=== PATIENT | female | born 1940 | race Native Hawaiian/Other Pacific Islander ===

== ENCOUNTER 2017-07-09 03:45 | Inpatient (IN) | payer MEDICARE ==
--- NOTE | 2017-07-09 04:08 | C.PDOC ---
History Of Present Illness pt presents with dizziness since yesterday at 3pm. difficulty ambulating. some nausea,no vomiting. No cp or palpitations. speaking in complete sentences Time Seen by Provider: 07/09/17 04:08 Chief Complaint (Nursing): Dizziness/Lightheaded History Per: Patient History/Exam Limitations: no limitations Onset/Duration Of Symptoms: Hrs (13) Current Symptoms Are (Timing): Still Present Activity At Onset Of Symptoms: Standing - Symptoms Of CVA Associated Symptoms: denies: Impaired Speech, Seizure Activity Recent Aspirin Use: No Current Coumadin Use?: No Recent Head Trauma: No Past Medical History Reviewed: Historical Data, Nursing Documentation, Vital Signs Vital Signs: Last Vital Signs Temp 98 F 07/09/17 06:25 Pulse 61 07/09/17 06:25 Resp 20 07/09/17 06:25 BP 152/83 H 07/09/17 06:25 Pulse Ox 97 07/09/17 06:25 - Medical History PMH: HTN, Hypercholesterolemia Family History: States: No Known Family Hx - Social History Hx Alcohol Use: No Hx Substance Use: No - Immunization History Hx Tetanus Toxoid Vaccination: No Hx Influenza Vaccination: No Hx Pneumococcal Vaccination: No Review Of Systems Constitutional: Negative for: Fever, Chills Eyes: Positive for: Other (blind left eye). Negative for: Redness Cardiovascular: Negative for: Chest Pain Respiratory: Negative for: Shortness of Breath Gastrointestinal: Positive for: Nausea. Negative for: Vomiting, Abdominal Pain Genitourinary: Negative for: Dysuria Musculoskeletal: Negative for: Back Pain Skin: Negative for: Rash Neurological: Positive for: Dizziness. Negative for: Weakness Psych: Negative for: Anxiety Physical Exam - Physical Exam Appears: Non-toxic, No Acute Distress Skin: Warm, Dry Head: Normacephalic Eye(s): left: Other (blind) Oral Mucosa: Moist Tongue: Normal Appearing Lips: Normal Appearing Neck: Supple Chest: Symmetrical Cardiovascular: Rhythm Regular Respiratory: No Rales, No Rhonchi, No Wheezing Gastrointestinal/Abdominal: Soft, No Tenderness, No Distention Back: No CVA Tenderness Extremity: Normal ROM, No Pedal Edema Extremity: Bilateral: Atraumatic Pulses: Left Dorsalis Pedis: Normal, Right Dorsalis Pedis: Normal Neurological/Psych: Oriented x3, Normal Speech, Normal Cognition, Other (no nystagmus) Gait: Unsteady ED Course And Treatment - Laboratory Results Result Diagrams: 07/09/17 04:45 07/09/17 04:45 ECG: Interpreted By Me, Viewed By Me O2 Sat by Pulse Oximetry: 96 Pulse Ox Interpretation: Normal - Radiology CXR: Interpreted by Me, Viewed By Me CXR Interpretation: No: Infiltrates, Fracture, Pnemothorax NIHSS Stroke Scale - Date/Time Evaluation Performed Date Performed: 07/09/17 When Was NIHSS Performed: Baseline - How Severe is the Stoke Level of Consciousness: 0=Alert LOC to Questions: 0=Both comments correct LOC to commands: 0=Obeys both correctly Best Gaze: 0=Normal Visual: 0=No visual loss Facial: 0=Normal Motor Arm - Left: 0=No drift Motor Arm - Right: 0=No drift Motor Leg - Left: 0=No drift Motor Leg - Right: 0=No drift Limb Ataxia: 0=Absent Sensory: 0=Normal Best Language: 0=No aphasia Dysarthia: 0=Normal articulation Extinction & Inattention (Neglect): 0=Normal, no object Score: 0 Severity Of Stroke: 0= No Stroke Disposition Discussed With DrFran: Dionicio Allison Jr. Comment: accepted the pt on his service and took over the care at 6:40 AM Doctor Will See Patient In The: ED Counseled Patient/Family Regarding: Studies Performed, Diagnosis - Disposition Disposition: HOSPITALIZED Disposition Time: 04:08 Condition: FAIR Forms: [facility] ([place]) - Clinical Impression Clinical Impression: Dizziness, Ambulatory dysfunction Decision To Admit - Pt Status Changed To: Hospital Disposition Of: Inpatient - Admit Certification Admit to Inpatient:: After my assessment, the patient will require hospitalization for at least two midnights. This is because of the severity of symptoms shown, intensity of services needed, and/or the medical risk in this patient being treated as an outpatient. - InPatient: Physician Admission Certification: I certify that this patient requires 2 or more midnights of care for the following reason:: After my assessment, the patient will require hospitalization for at least two midnights. This is because of the severity of symptoms shown, intensity of services needed, and/or the medical risk in this patient being treated as an outpatient. - . Bed Request Type: Telemetry Admitting Physician: Dionicio Allison Jr. Patient Diagnosis: Dizziness, Ambulatory dysfunction
[2017-07-09 04:49] LABS: BASO # 0.1 K/uL (0.0-0.2); BASO % 1.1 % (0.0-2.0); EOS # 0.1 K/uL (0.0-0.7); EOS % 0.9 % (0.0-4.0); HEMATOCRIT 42.3 % (34.0-47.0); LYMPH # 1.5 K/uL (1.0-4.3); LYMPH % 16.4 % (20.0-40.0); MEAN CELL VOLUME 92.2 fL (81.0-99.0); MEAN CORPUSCULAR HEMOGLOBIN 31.2 pg (27.0-31.0); MEAN CORPUSCULAR HGB CONC 33.8 g/dL (33.0-37.0); MEAN PLATELET VOLUME 7.3 fL (7.2-11.7); MONO # 0.7 K/uL (0.0-0.8); MONO % 7.5 % (0.0-10.0); RED CELL DISTRIBUTION WIDTH 14.7 % (11.5-14.5); WHITE BLOOD COUNT 9.2 K/uL (4.8-10.8)
[2017-07-09 05:02] LABS: ALB/GLOB RATIO 0.9 (1.0-2.1); ALKALINE PHOSPHATASE 100 U/L (38-126); ALT/SGPT 29 U/L (9-52); AST/SGOT 20 U/L (14-36); BILIRUBIN,TOTAL 0.9 mg/dL (0.2-1.3); BLOOD UREA NITROGEN 11 mg/dL (7-17); CARBON DIOXIDE 21 mmol/L (22-30); CHLORIDE 101 mmol/L (98-107); GFR AFRICAN-AMERICAN > 60; GLUCOSE,RANDOM 145 mg/dL (65-105); POTASSIUM 4.1 mmol/L (3.6-5.2); SODIUM 139 mmol/L (132-148)
[2017-07-09 06:22] LABS: RBC URINE 3 /hpf (0-3); URINE BILIRUBIN NEGATIVE (NEGATIVE); URINE BLOOD NEGATIVE (NEGATIVE); URINE COLOR Straw (YELLOW); URINE GLUCOSE (UA) 1+ mg/dL (Normal); URINE KETONE TRACE mg/dL (NEGATIVE); URINE LEUKOCYTE ESTERASE TRACE Leu/uL (Negative); URINE PROTEIN 1+ mg/dL (NEGATIVE); URINE UROBILINOGEN NORMAL mg/dL (0.2-1.0)
[2017-07-09 07:32] LABS: WBC URINE 3 /hpf (0-5)
--- NOTE | 2017-07-09 07:41 | CP.PCM.HP ---
History of Present Illness - History of Present Illness History of Present Illness: CC: "I feel dizzy" HPI: Patient is a 76 F reporting to the ED for weakness with at bedside. Patient stated that yesterday afternoon (07/08) she was watching TV and when she got up to go to the bathroom she felt dizzy and unsteady, like I couldnt walk straight. She reports still feeling dizzy and like she was going to lose her balance after using the restroom. Patient denies falling. 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 Pt denies using an assisted walking device but reports that she goes for walks with her every morning. Pt denies fevers, weakness, headache, changes in vision, chest pain, palpitations, SOB, V/D/C, changes in weight, vertigo. PMD: Dr. Cachorro Gaines #[phone] Allergies: none Meds: 10mg PO Simvastatin daily, 50mg PO Atenolol daily, Lotrel 10/20 mg once per day to each eye PMHx: HTN, HLD, Cataracts, Prediabetic, breast cancer PSHx: Cataract Left eye, Mastectomy left breast (1992), x2 FamHx: Father with HTN and Stroke ( at 65) Social: denies tobacco, alcohol, drug use. Patient lives with (Warner # [phone]) and has two adult children in [place] and [place]. Pt enjoys gardening and cooking. Patient does not drive. Vitals: BP flat: 151/65 BP Sittin/60 Present on Admission - Present on Admission Any Indicators Present on Admission: No Review of Systems - Constitutional Constitutional: absent: Chills, Fever, Headache, Increased Appetite, Night Sweats, Weight Gain, Weight Loss, Weakness - EENT Eyes: Other (blind in left eye). absent: Change in Vision, Pain, Loss of Vision Ears: Disequilibrium. absent: Dizziness Nose/Mouth/Throat: absent: Sore Throat - Cardiovascular Cardiovascular: Lightheadedness. absent: Chest Pain, Dyspnea, Leg Edema, Palpitations, Rapid Heart Rate, Syncope - Respiratory Respiratory: absent: Cough, Dyspnea, Dyspnea on Exertion, Wheezing - Gastrointestinal Gastrointestinal: Nausea. absent: Constipation, Diarrhea, Vomiting - Genitourinary Genitourinary: absent: Dysuria, Hematuria - Musculoskeletal Musculoskeletal: absent: Muscle Weakness, Numbness, Tingling - Neurological Neurological: Disequilibrium. absent: Numbness, Headaches Past Patient History - Infectious Disease Hx of Infectious Diseases: None - Past Social History Smoking Status: Never Smoked - CARDIAC Hx Hypercholesterolemia: Yes Hx Hypertension: Yes - PSYCHIATRIC Hx Substance Use: No - SURGICAL HISTORY Hx Mastectomy: Yes (left mastectomy) - ANESTHESIA Hx Anesthesia: No Meds Allergies/Adverse Reactions: Allergies Allergy/AdvReac Type Severity Reaction Status Date / Time No Known Allergies Allergy Verified 07/09/17 04:03 Physical Exam - Constitutional Appears: No Acute Distress - Head Exam Head Exam: ATRAUMATIC, NORMAL INSPECTION, NORMOCEPHALIC - Eye Exam Eye Exam: EOMI, Normal appearance, PERRL Pupil Exam: NORMAL ACCOMODATION, PERRL - ENT Exam ENT Exam: Mucous Membranes Moist - Respiratory Exam Respiratory Exam: Clear to Auscultation Bilateral, NORMAL BREATHING PATTERN. absent: Rales, Rhonchi, Wheezes, Stridor - Cardiovascular Exam Cardiovascular Exam: REGULAR RHYTHM, RRR, +S1, +S2 - GI/Abdominal Exam GI & Abdominal Exam: Normal Bowel Sounds, Soft. absent: Tenderness - Extremities Exam Extremities exam: Positive for: full ROM, normal inspection, pedal pulses present. Negative for: calf tenderness, joint swelling, pedal edema, tenderness - Neurological Exam Neurological exam: Alert, CN II-XII Intact, Oriented x3 - Expanded Neurological Exam Expanded Patient oriented to: person, place, time Cranial nerves: EOM's Intact: Normal, Facial Sensation: Normal Sensory exam: Lower Extremity Light Touch: Normal, Upper Extremity Light Touch: Normal Neuro motor strength exam: Left Upper Extremity: 5, Right Upper Extremity: 5, Left Lower Extremity: 5, Right Lower Extremity: 5 Coma Scale Eye Opening: SPONTANEOUS Coma Scale Motor Response: OBEYS COMMANDS Coma Scale Verbal: Oriented Coma Scale Total: 15 - Psychiatric Exam Psychiatric exam: Normal Affect - Skin Skin Exam: Normal Color, Warm Results - Vital Signs Recent Vital Signs: Last Vital Signs Temp 98 F 07/09/17 06:25 Pulse 61 07/09/17 06:25 Resp 20 07/09/17 06:25 BP 152/83 H 07/09/17 06:25 Pulse Ox 96 07/09/17 06:48 - Labs Result Diagrams: 07/09/17 04:45 07/09/17 04:45 Assessment & Plan (1) Dizziness Assessment and Plan: - Repeat EKG - AZUL x3 - Negative x2 - f/u Lipid Panel - f/u HA1C - Carotid doppler: Right and Left normal findings - f/u ECHO - Head CT: No intracranial mass, hemorrhage or evidence of acute infarct. Mild age appropriate involutional change. - Cardiology Consult: Dr. Guillen --> help appreciated Status: Acute (2) History of hypertension Assessment and Plan: Continue: Aspirin 81mg daily, Amlodipine 10mg daily, atenolol 50mg daily Status: Acute (3) History of hyperlipidemia Assessment and Plan: Continue: 2.5mg PO Rosuvastatin Status: Acute (4) DVT prophylaxis Assessment and Plan: heparin sc Status: Acute
--- NOTE | 2017-07-09 08:21 | CT ---
PROCEDURE: CT HEAD WITHOUT CONTRAST. HISTORY: Headache COMPARISON: None available. TECHNIQUE: Axial computed tomography images were obtained through the head/brain without intravenous contrast. Radiation dose: Total exam DLP = 872.10 mGy-cm. This CT exam was performed using one or more of the following dose reduction techniques: Automated exposure control, adjustment of the mA and/or kV according to patient size, and/or use of iterative reconstruction technique. FINDINGS: HEMORRHAGE: No intracranial hemorrhage. BRAIN: No mass effect or edema. No significant atrophy. Mild periventricular white matter lucency with patchy and confluent deep white matter lucency bilaterally, consistent with age-related microvascular ischemic change. No evidence of acute infarct. VENTRICLES: Unremarkable. No hydrocephalus. CALVARIUM: Unremarkable. PARANASAL SINUSES: Unremarkable as visualized. No significant inflammatory changes. MASTOID AIR CELLS: Unremarkable as visualized. No inflammatory changes. OTHER FINDINGS: None. IMPRESSION: No intracranial mass, hemorrhage or evidence of acute infarct. Mild age appropriate involutional change. Preliminary interpretation of this examination was reported by [facility] at 5:53 a.m. on 07/09/2017. There is concurrence of this report with the preliminary interpretation.
[2017-07-09 10:11] LABS: INR 1.1
[2017-07-09] MEDS: Rosuvastatin Calcium 2.5 mg Tab PO SCH (21:47)
[2017-07-10 07:47] LABS: BASO # 0.1 K/uL (0.0-0.2); BASO % 0.8 % (0.0-2.0); EOS # 0.1 K/uL (0.0-0.7); HEMATOCRIT 41.3 % (34.0-47.0); LYMPH % 30.7 % (20.0-40.0); MEAN CELL VOLUME 92.1 fL (81.0-99.0); MEAN CORPUSCULAR HEMOGLOBIN 30.8 pg (27.0-31.0); MEAN CORPUSCULAR HGB CONC 33.5 g/dL (33.0-37.0); MEAN PLATELET VOLUME 7.6 fL (7.2-11.7); MONO # 0.7 K/uL (0.0-0.8); MONO % 10.3 % (0.0-10.0); RED CELL DISTRIBUTION WIDTH 14.6 % (11.5-14.5); WHITE BLOOD COUNT 6.4 K/uL (4.8-10.8)
[2017-07-10 08:23] LABS: CHLORIDE 105 mmol/L (98-107); SODIUM 140 mmol/L (132-148)
[2017-07-10 08:24] LABS: POTASSIUM 3.7 mmol/L (3.6-5.2)
[2017-07-10 08:25] LABS: CHOLESTEROL 197 mg/dL (0-199)
[2017-07-10 08:26] LABS: ALKALINE PHOSPHATASE 82 U/L (38-126); ALT/SGPT 27 U/L (9-52); AST/SGOT 24 U/L (14-36); BLOOD UREA NITROGEN 17 mg/dL (7-17); CALCIUM 8.6 mg/dl (8.6-10.4); CARBON DIOXIDE 26 mmol/L (22-30); GFR AFRICAN-AMERICAN > 60; GLUCOSE,RANDOM 113 mg/dL (65-105); TOTAL PROTEIN 7.3 g/dL (6.3-8.3)
[2017-07-10 08:45] LABS: T4 9.56 ug/dL (5.5-11.0)
[2017-07-10 09:00] LABS: THYROID STIMULATING HORMONE 1.37 mIU/L (0.46-4.68)
--- NOTE | 2017-07-10 10:19 | CP.PCM.CON ---
<Ananya Lancaster - Last Filed: 07/11/17 08:55> History of Present Illness - History of Present Illness History of Present Illness: 76 year old female with past medical history hypertension, hyperlipidemia, prediabetes, and breast cancer s/p left breast mastectomy presents with dizziness at home after using the restroom. Patient describes her dizziness as if she is losing her balance and she could not walk straight. No prior history of the same. Patient exercises daily by walking with her every morning. Patient denies loss of consciousness or falling after experiencing the dizziness. She is compliant with her medications at home. Patient denies headache, fever, shortness of breath, chest pain, abdominal pain, nausea, vomiting, or diarrhea. PMD: Dr. Gaines PMHx: hypertension, hyperlipidemia, prediabetes, and breast cancer PSHx: Cataract Left eye, Mastectomy left breast (1992), x2 Allergies: none Family Hx: Father with HTN and Stroke ( at 65) Social: denies past tobacco, alcohol, and other drug use Home Meds: Simvastatin, Atenolol, Lotrel eye drop Review of Systems - Constitutional Constitutional: As Per HPI. absent: Excessive Sweating, Fever, Weight Loss - EENT Eyes: As Per HPI. absent: Blurred Vision, Change in Vision Ears: As Per HPI, Disequilibrium, Dizziness Nose/Mouth/Throat: As Per HPI - Cardiovascular Cardiovascular: As Per HPI, Lightheadedness. absent: Chest Pain, Edema, Irregular Heart Rhythm, Syncope - Respiratory Respiratory: As Per HPI. absent: Cough, Dyspnea, Dyspnea on Exertion, Wheezing - Gastrointestinal Gastrointestinal: As Per HPI. absent: Heartburn, Nausea, Vomiting - Musculoskeletal Musculoskeletal: As Per HPI. absent: Deformity, Muscle Weakness - Integumentary Integumentary: As Per HPI - Neurological Neurological: As Per HPI, Disequilibrium, Dizziness - Psychiatric Psychiatric: As Per HPI. absent: Anxiety, Confusion, Depression - Endocrine Endocrine: As Per HPI - Hematologic/Lymphatic Hematologic: As Per HPI Past Patient History - Infectious Disease Hx of Infectious Diseases: None - Past Medical History & Family History Past Medical History?: Yes - Past Social History Smoking Status: Never Smoked - CARDIAC Hx Hypercholesterolemia: Yes Hx Hypertension: Yes - PULMONARY Hx Respiratory Disorders: No - NEUROLOGICAL Hx Neurological Disorder: No - HEENT Hx Cataracts: Yes - RENAL Hx Chronic Kidney Disease: No - ENDOCRINE/METABOLIC Other/Comment: patient states she is borderline diabetic. - HEMATOLOGICAL/ONCOLOGICAL Hx Blood Disorders: Yes Hx Cancer: Yes (breast CA) - INTEGUMENTARY Hx Dermatological Problems: No - MUSCULOSKELETAL/RHEUMATOLOGICAL Hx Falls: No - GASTROINTESTINAL Hx Gastrointestinal Disorders: No - GENITOURINARY/GYNECOLOGICAL Hx Genitourinary Disorders: No - PSYCHIATRIC Hx Substance Use: No - SURGICAL HISTORY Hx Mastectomy: Yes (left mastectomy) - ANESTHESIA Hx Anesthesia: No Meds Allergies/Adverse Reactions: Allergies Allergy/AdvReac Type Severity Reaction Status Date / Time No Known Allergies Allergy Verified 07/09/17 04:03 - Medications Medications: Current Medications Amlodipine Besylate (Norvasc) 10 mg PO DAILY [facility] Last Admin: 07/10/17 09:15 Dose: 10 mg Aspirin (Ecotrin) 81 mg PO DAILY [facility] Last Admin: 07/10/17 09:15 Dose: 81 mg Atenolol (Tenormin) 25 mg PO DAILY [facility] Famotidine (Pepcid) 20 mg PO DAILY [facility] Last Admin: 07/10/17 09:15 Dose: 20 mg Heparin Sodium (Porcine) (Heparin) 5,000 units SC Q8H [facility] Last Admin: 07/10/17 09:15 Dose: 5,000 units Rosuvastatin Calcium (Crestor) 2.5 mg PO HS [facility] Last Admin: 07/09/17 21:47 Dose: 2.5 mg Physical Exam - Constitutional Appears: Well, No Acute Distress - Head Exam Head Exam: ATRAUMATIC, NORMAL INSPECTION - Eye Exam Eye Exam: Normal appearance - ENT Exam ENT Exam: Mucous Membranes Moist - Neck Exam Neck exam: Positive for: Normal Inspection - Respiratory Exam Respiratory Exam: Clear to Auscultation Bilateral, NORMAL BREATHING PATTERN. absent: Respiratory Distress - Cardiovascular Exam Cardiovascular Exam: REGULAR RHYTHM - GI/Abdominal Exam GI & Abdominal Exam: Normal Bowel Sounds, Soft. absent: Tenderness - Extremities Exam Extremities exam: Positive for: normal inspection - Neurological Exam Neurological exam: Alert, Oriented x3 - Psychiatric Exam Psychiatric exam: Normal Affect, Normal Mood - Skin Skin Exam: Normal Color, Warm Results - Vital Signs Recent Vital Signs: Last Vital Signs Temp 98.1 F 07/10/17 08:43 Pulse 58 L 07/10/17 08:43 Resp 18 07/10/17 08:43 BP 126/69 07/10/17 08:43 Pulse Ox 95 07/10/17 08:43 - Labs Result Diagrams: 07/10/17 07:36 07/10/17 07:36 Labs: Laboratory Results - last 24 hr 07/09/17 07/09/17 07/09/17 09:58 14:24 19:51 WBC RBC Hgb Hct MCV MCH MCHC RDW Plt Count MPV Neut % (Auto) Lymph % (Auto) Hand % (Auto) Eos % (Auto) Baso % (Auto) Neut # Lymph # Hand # Eos # Baso # PT 12.0 INR 1.1 APTT Sodium Potassium Chloride Carbon Dioxide Anion Gap BUN Creatinine Est GFR ( Amer) Est GFR (Non-Af Amer) Random Glucose Hemoglobin A1c Calcium Total Bilirubin AST ALT Alkaline Phosphatase Total Creatine Kinase 31 26 L CK-MB (Mass) 0.27 0.31 Troponin I, Quant < 0.0120 < 0.0120 Total Protein Albumin Globulin Albumin/Globulin Ratio Triglycerides Cholesterol LDL Cholesterol Direct HDL Cholesterol Thyroxine (T4) TSH 3rd Generation 07/10/17 07/10/17 07/10/17 07:36 07:36 07:36 WBC 6.4 RBC 4.48 Hgb 13.8 Hct 41.3 MCV 92.1 MCH 30.8 MCHC 33.5 RDW 14.6 H Plt Count 349 MPV 7.6 Neut % (Auto) 56.2 Lymph % (Auto) 30.7 Hand % (Auto) 10.3 H Eos % (Auto) 2.0 Baso % (Auto) 0.8 Neut # 3.6 Lymph # 2.0 Hand # 0.7 Eos # 0.1 Baso # 0.1 PT INR APTT Sodium 140 Potassium 3.7 Chloride 105 Carbon Dioxide 26 Anion Gap 13 BUN 17 Creatinine 0.7 Est GFR ( Amer) > 60 Est GFR (Non-Af Amer) > 60 Random Glucose 113 H Hemoglobin A1c 6.5 Calcium 8.6 Total Bilirubin 1.0 AST 24 ALT 27 Alkaline Phosphatase 82 Total Creatine Kinase CK-MB (Mass) Troponin I, Quant Total Protein 7.3 Albumin 3.7 Globulin 3.6 Albumin/Globulin Ratio 1.0 Triglycerides 186 H Cholesterol 197 LDL Cholesterol Direct 113 HDL Cholesterol 54 Thyroxine (T4) 9.56 TSH 3rd Generation 1.37 07/10/17 07:36 WBC RBC Hgb Hct MCV MCH MCHC RDW Plt Count MPV Neut % (Auto) Lymph % (Auto) Hand % (Auto) Eos % (Auto) Baso % (Auto) Neut # Lymph # Hand # Eos # Baso # PT INR APTT 53 H Sodium Potassium Chloride Carbon Dioxide Anion Gap BUN Creatinine Est GFR ( Amer) Est GFR (Non-Af Amer) Random Glucose Hemoglobin A1c Calcium Total Bilirubin AST ALT Alkaline Phosphatase Total Creatine Kinase CK-MB (Mass) Troponin I, Quant Total Protein Albumin Globulin Albumin/Globulin Ratio Triglycerides Cholesterol LDL Cholesterol Direct HDL Cholesterol Thyroxine (T4) TSH 3rd Generation Assessment & Plan - Assessment and Plan (Free Text) Assessment: Dizziness -Likely vasovagal -No acute ST changes in EKG -Trop negative x3 -Pending results Carotid dopple, Echo -Unremarkable Head CT and TSH -Normal orthostatic- supine: 151/65, Sittin/60 Hypertension, controlled -Continue with Aspirin, Amlodipine, and Atenolol Hyperlipidemia -TG 186 -Continue crestor <Marco Antonio Guillen - Last Filed: 07/13/17 06:54> Results - Vital Signs Recent Vital Signs: Last Vital Signs Temp 98.7 F 07/12/17 08:46 Pulse 58 L 07/12/17 08:46 Resp 20 07/12/17 08:46 BP 130/76 07/12/17 08:46 Pulse Ox 96 07/12/17 08:46 - Labs Result Diagrams: 07/11/17 07:09 07/10/17 07:36 Assessment & Plan - Assessment and Plan (Free Text) Plan: Patient seen and evaluated with the medical record coder. Symptoms likely secondary to Atenolol Will decrease Atenolol dosage and observe
--- NOTE | 2017-07-10 10:49 | VASCLAB ---
PROCEDURE: HISTORY: Syncope COMPARISON: None available. TECHNIQUE: Grayscale and duplex Doppler evaluation of the cervical carotid and vertebral arteries were performed. The common carotid, carotid bifurcations and cervical Internal Carotid Artery (ICA) and proximal External Carotid Artery (ECA) were evaluated. The vertebral arteries were evaluated for gross patency and flow direction. Report prepared by IDA Zelaya FINDINGS: RIGHT CAROTID ARTERIES: 1. Common Carotid Artery: No significant focal plaque formation of the right common carotid artery. Maximum Peak Systolic velocity: 77 cm/sec: End-diastolic velocity 12 cm/sec. 2. Carotid Bifurcation: plaque formation. Maximum Peak Systolic velocity: 75 cm/sec: End-diastolic velocity 12 cm/sec. 3. Internal Carotid Artery: Plaque description: 3.1. Proximal Segment: Peak systolic velocity 66 cm/sec: End-diastolic velocity 14 cm/sec - % stenosis 0-15% 3.2. Middle Segment: Peak systolic velocity 71 cm/sec: End-diastolic velocity 18 cm/sec - % stenosis 0-15% 3.3. Distal Segment: Peak systolic velocity 107 cm/sec: End-diastolic velocity 24 cm/sec - % stenosis 0-15% 4. External Carotid Artery: No significant focal plaque formation. Peak systolic velocity 95 cm/sec 5. ICA/CCA Ratio: 1.4 LEFT CAROTID ARTERIES: 1. Common Carotid Artery: No significant focal plaque formation of the left common carotid artery. Maximum Peak Systolic velocity: 88 cm/sec: End-diastolic velocity 19 cm/sec. 2. Carotid Bifurcation: plaque formation. Maximum Peak Systolic velocity: 75 cm/sec: End-diastolic velocity 12 cm/sec. 3. Internal Carotid Artery: Plaque description: 3.1. Proximal Segment: Peak systolic velocity 62 cm/sec: End-diastolic velocity 14 cm/sec - % stenosis 0-15% 3.2. Middle Segment: Peak systolic velocity 87 cm/sec: End-diastolic velocity 22 cm/sec - % stenosis 0-15% 3.3. Distal Segment: Peak systolic velocity 105 cm/sec: End-diastolic velocity 34 cm/sec - % stenosis 0-15% 4. External Carotid Artery: No significant focal plaque formation. Peak systolic velocity 75 cm/sec 5. ICA/CCA Ratio: 1.2 VERTEBRAL ARTERIES: 1. Right Vertebral Artery: The right vertebral artery flow direction is antegrade. 2. Left Vertebral Artery: The left vertebral artery flow direction is antegrade. OTHER FINDINGS: 1. Right Brachial Blood pressure: 130 mmHg. 2. Left Brachial Blood pressure: 120 mmHg. IMPRESSION: RIGHT: Duplex scan does not suggest hemodynamically significant stenosis of the right extracranial carotid arteries. LEFT: Duplex scan does not suggest hemodynamically significant stenosis of the left extracranial carotid arteries.
--- NOTE | 2017-07-10 15:57 | CP.PCM.PN ---
<SarmadPark SFran - Last Filed: 07/10/17 18:01> Subjective - Date & Time of Evaluation Date of Evaluation: 07/10/17 Time of Evaluation: 07:30 - Subjective Subjective: Medicine Progress Note: Patient was seen and examined at bedside in the AM. Patient reports no complaints over night. Per nurse patient needed assistance getting up to use the restroom because she began to feel dizzy. Patient denies shortness of breath , difficulty breathing, chest pain or palpitations. Objective - Vital Signs/Intake and Output Vital Signs (last 24 hours): Temp Pulse Resp BP Pulse Ox 98.1 F 71 18 126/69 95 07/10/17 08:43 07/10/17 12:00 07/10/17 08:43 07/10/17 08:43 07/10/17 08:43 Intake and Output: 07/10/17 07/10/17 06:59 18:59 Intake Total 400 Balance 400 - Medications Medications: Current Medications Amlodipine Besylate (Norvasc) 10 mg PO DAILY [facility] Last Admin: 07/10/17 09:15 Dose: 10 mg Aspirin (Ecotrin) 81 mg PO DAILY [facility] Last Admin: 07/10/17 09:15 Dose: 81 mg Atenolol (Tenormin) 25 mg PO DAILY [facility] Famotidine (Pepcid) 20 mg PO DAILY [facility] Last Admin: 07/10/17 09:15 Dose: 20 mg Heparin Sodium (Porcine) (Heparin) 5,000 units SC Q8H [facility] Last Admin: 07/10/17 09:15 Dose: 5,000 units Rosuvastatin Calcium (Crestor) 2.5 mg PO HS [facility] Last Admin: 07/09/17 21:47 Dose: 2.5 mg - Labs Labs: 07/10/17 07:36 07/10/17 07:36 PT 12.0 SECONDS (9.7-12.2) 07/09/17 09:58 INR 1.1 07/09/17 09:58 APTT 53 SECONDS (21-34) H 07/10/17 07:36 - Constitutional Appears: No Acute Distress - Head Exam Head Exam: ATRAUMATIC, NORMAL INSPECTION, NORMOCEPHALIC - Eye Exam Eye Exam: EOMI, Normal appearance, PERRL Pupil Exam: NORMAL ACCOMODATION, PERRL - ENT Exam ENT Exam: Mucous Membranes Moist - Respiratory Exam Respiratory Exam: Clear to Ausculation Bilateral, NORMAL BREATHING PATTERN - Cardiovascular Exam Cardiovascular Exam: REGULAR RHYTHM, RRR, +S1, +S2 - GI/Abdominal Exam GI & Abdominal Exam: Soft, Normal Bowel Sounds. absent: Tenderness - Extremities Exam Extremities Exam: Normal Inspection - Neurological Exam Neurological Exam: Alert, Awake, Oriented x3 - Psychiatric Exam Psychiatric exam: Normal Affect, Normal Mood - Skin Skin Exam: Normal Color, Warm Assessment and Plan (1) Dizziness Assessment & Plan: - Repeat EKG - within normal limits - AZUL x3 -Negative x3 - Lipid Panel: Cholesterol 197; LDL 113; HDL 54; Triglycerides 186 - HA1C 6.5 - Carotid doppler: Right and Left normal findings - f/u ECHO - Head CT: No intracranial mass, hemorrhage or evidence of acute infarct. Mild age appropriate involutional change. - Cardiology Consult: Dr. Guillen --> help appreciated Status: Acute (2) History of hypertension Assessment & Plan: - Cardiology Consult: Dr. Guillen --> help appreciated - Continue: Aspirin 81mg daily, Amlodipine 10mg daily - Atenolol was held 07/10 - Start Atenolol 25mg 07/10 PO daily Status: Acute (3) History of hyperlipidemia Assessment & Plan: Continue: 2.5mg PO Rosuvastatin Status: Acute (4) DVT prophylaxis Assessment & Plan: heparin sc Status: Acute <Dionicio Allison Jr. - Last Filed: 07/12/17 10:46> Objective - Vital Signs/Intake and Output Vital Signs (last 24 hours): Temp Pulse Resp BP Pulse Ox 98.7 F 58 L 20 130/76 96 07/12/17 08:46 07/12/17 08:46 07/12/17 08:46 07/12/17 08:46 07/12/17 08:46 - Labs Labs: 07/11/17 07:09 07/10/17 07:36 PT 12.0 SECONDS (9.7-12.2) 07/09/17 09:58 INR 1.1 07/09/17 09:58 APTT 53 SECONDS (21-34) H 07/10/17 07:36 Attending/Attestation - Attestation I have personally seen and examined this patient.: Yes I have fully participated in the care of the patient.: Yes I have reviewed all pertinent clinical information, including history, physical exam and plan: Yes Notes (Text): 07/12/17 10:46 Agree with resident note and plan of care
--- NOTE | 2017-07-10 17:37 | CARD ---
APPROVED REPORT EKG Measurement Heart [id number] CT 188P-23 [id number] [id number]-4 [id number] <Conclusion> Normal sinus rhythm Normal ECG
--- NOTE | 2017-07-10 17:52 | CARD ---
APPROVED REPORT EKG Measurement Heart [id number] W[place] 202P-24 [id number] <Conclusion> Normal sinus rhythm Cannot rule out Anterior infarct, age undetermined Abnormal ECG
[2017-07-10] MEDS: Rosuvastatin Calcium 2.5 mg Tab PO SCH (21:30)
[2017-07-11 07:26] LABS: BASO # 0.1 K/uL (0.0-0.2); BASO % 0.9 % (0.0-2.0); EOS # 0.2 K/uL (0.0-0.7); EOS % 2.3 % (0.0-4.0); HEMATOCRIT 40.6 % (34.0-47.0); LYMPH % 28.5 % (20.0-40.0); MEAN CELL VOLUME 92.5 fL (81.0-99.0); MEAN CORPUSCULAR HEMOGLOBIN 30.8 pg (27.0-31.0); MEAN CORPUSCULAR HGB CONC 33.3 g/dL (33.0-37.0); MEAN PLATELET VOLUME 7.5 fL (7.2-11.7); MONO # 0.8 K/uL (0.0-0.8); MONO % 10.5 % (0.0-10.0); RED CELL DISTRIBUTION WIDTH 14.5 % (11.5-14.5); WHITE BLOOD COUNT 7.1 K/uL (4.8-10.8)
[2017-07-11] MEDS ORDERED: Bisacodyl 5mg EC Tab PO ONE (13:20)
--- NOTE | 2017-07-11 16:23 | CP.PCM.DIS ---
Provider - Provider Date of Admission: 07/09/17 06:38 Attending physician: Dionicio Allison Jr, MD Time Spent in preparation of Discharge (in minutes): 40 Diagnosis - Discharge Diagnosis (1) Dizziness Status: Acute (2) History of hypertension Status: Acute (3) History of hyperlipidemia Status: Acute (4) DVT prophylaxis Status: Acute Hospital Course - Lab Results Lab Results: Most Recent Lab Values WBC 7.1 K/uL (4.8-10.8) 07/11/17 07:09 RBC 4.39 Mil/uL (3.80-5.20) 07/11/17 07:09 Hgb 13.5 g/dL (11.0-16.0) 07/11/17 07:09 Hct 40.6 % (34.0-47.0) 07/11/17 07:09 MCV 92.5 fL (81.0-99.0) 07/11/17 07:09 MCH 30.8 pg (27.0-31.0) 07/11/17 07:09 MCHC 33.3 g/dL (33.0-37.0) 07/11/17 07:09 RDW 14.5 % (11.5-14.5) 07/11/17 07:09 Plt Count 323 K/uL (130-400) 07/11/17 07:09 MPV 7.5 fL (7.2-11.7) 07/11/17 07:09 Neut % (Auto) 57.8 % (50.0-75.0) 07/11/17 07:09 Lymph % (Auto) 28.5 % (20.0-40.0) 07/11/17 07:09 [place] % (Auto) 10.5 % (0.0-10.0) H 07/11/17 07:09 Eos % (Auto) 2.3 % (0.0-4.0) 07/11/17 07:09 Baso % (Auto) 0.9 % (0.0-2.0) 07/11/17 07:09 Neut # 4.1 K/uL (1.8-7.0) 07/11/17 07:09 Lymph # 2.0 K/uL (1.0-4.3) 07/11/17 07:09 [place] # 0.8 K/uL (0.0-0.8) 07/11/17 07:09 Eos # 0.2 K/uL (0.0-0.7) 07/11/17 07:09 Baso # 0.1 K/uL (0.0-0.2) 07/11/17 07:09 PT 12.0 SECONDS (9.7-12.2) 07/09/17 09:58 INR 1.1 07/09/17 09:58 APTT 53 SECONDS (21-34) H 07/10/17 07:36 Sodium 140 mmol/L (132-148) 07/10/17 07:36 Potassium 3.7 mmol/L (3.6-5.2) 07/10/17 07:36 Chloride 105 mmol/L (98-107) 07/10/17 07:36 Carbon Dioxide 26 mmol/L (22-30) 07/10/17 07:36 Anion Gap 13 (10-20) 07/10/17 07:36 BUN 17 mg/dL (7-17) 07/10/17 07:36 Creatinine 0.7 MG/DL (0.7-1.2) 07/10/17 07:36 Est GFR ( Amer) > 60 07/10/17 07:36 Est GFR (Non-Af Amer) > 60 07/10/17 07:36 Random Glucose 113 mg/dL (65-105) H 07/10/17 07:36 Hemoglobin A1c 6.5 % (4.2-6.5) 07/10/17 07:36 Calcium 8.6 mg/dl (8.6-10.4) 07/10/17 07:36 Total Bilirubin 1.0 mg/dL (0.2-1.3) 07/10/17 07:36 AST 24 U/L (14-36) 07/10/17 07:36 ALT 27 U/L (9-52) 07/10/17 07:36 Alkaline Phosphatase 82 U/L (38-126) 07/10/17 07:36 Total Creatine Kinase 26 U/L (30-135) L 07/09/17 19:51 CK-MB (Mass) 0.31 ng/mL (0.0-3.38) 07/09/17 19:51 Troponin I, Quant < 0.0120 ng/mL (0.00-0.120) 07/09/17 19:51 Total Protein 7.3 g/dL (6.3-8.3) 07/10/17 07:36 Albumin 3.7 g/dL (3.5-5.0) 07/10/17 07:36 Globulin 3.6 gm/dL (2.2-3.9) 07/10/17 07:36 Albumin/Globulin Ratio 1.0 (1.0-2.1) 07/10/17 07:36 Triglycerides 186 mg/dL (0-149) H 07/10/17 07:36 Cholesterol 197 mg/dL (0-199) 07/10/17 07:36 LDL Cholesterol Direct 113 mg/dL (0-129) 07/10/17 07:36 HDL Cholesterol 54 mg/dL (30-70) 07/10/17 07:36 Thyroxine (T4) 9.56 ug/dL (5.5-11.0) 07/10/17 07:36 TSH 3rd Generation 1.37 mIU/L (0.46-4.68) 07/10/17 07:36 Urine Color Straw (YELLOW) 07/09/17 04:25 Urine Clarity Clear (Clear) 07/09/17 04:25 Urine pH 7.0 (5.0-8.0) 07/09/17 04:25 Ur Specific [place] 1.012 (1.003-1.030) 07/09/17 04:25 Urine Protein 1+ mg/dL (NEGATIVE) H 07/09/17 04:25 Urine Glucose (UA) 1+ mg/dL (Normal) 07/09/17 04:25 Urine Ketones Trace mg/dL (NEGATIVE) 07/09/17 04:25 Urine Blood Negative (NEGATIVE) 07/09/17 04:25 Urine Nitrate Negative (NEGATIVE) 07/09/17 04:25 Urine Bilirubin Negative (NEGATIVE) 07/09/17 04:25 Urine Urobilinogen Normal mg/dL (0.2-1.0) 07/09/17 04:25 Ur Leukocyte Esterase Trace Dodie/uL (Negative) 07/09/17 04:25 Urine WBC (Auto) 3 /hpf (0-5) 07/09/17 04:25 Urine RBC (Auto) 3 /hpf (0-3) 07/09/17 04:25 Ur Squamous Epith Cells 1 /hpf (0-5) 07/09/17 04:25 - Hospital Course Hospital Course: CC: "I feel dizzy" HPI: Patient is a 76 F reporting to the ED for weakness with at bedside. Patient stated that yesterday afternoon (07/08) she was watching TV and when she got up to go to the bathroom she felt dizzy and unsteady, like I couldnt walk straight. She reports still feeling dizzy and like she was going to lose her balance after using the restroom. Patient denies falling. 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 Pt denies using an assisted walking device but reports that she goes for walks with her every morning. Pt denies fevers, weakness, headache, changes in vision, chest pain, palpitations, SOB, V/D/C, changes in weight, vertigo. PMD: Dr. Cachorro Gaines #[phone] Allergies: none Meds: 10mg PO Simvastatin daily, 50mg PO Atenolol daily, Lotrel 10/20 mg once per day to each eye PMHx: HTN, HLD, Cataracts, Prediabetic, breast cancer PSHx: Cataract Left eye, Mastectomy left breast (1992), x2 FamHx: Father with HTN and Stroke ( at 65) Social: denies tobacco, alcohol, drug use. Patient lives with (Warner # [phone]) and has two adult children in [place] and [place]. Pt enjoys gardening and cooking. Patient does not drive. Vitals: BP flat: 151/65 BP Sittin/60 Hospital Course: Patient was admitted on 07/09/17 for dizziness and feeling unsteady on her feet like she was going to pass out. EKG x2 was within normal limits. Troponin levels x3 were negative. Lipid Panel: Cholesterol 197; LDL 113; HDL 54; Triglycerides 186; HA1C 6.5. Field Administrative Assistant Dr. Guillen was consulted. Head CT on admission showed no intracranial mass, hemorrhage or evidence of acute infarct. Mild age appropriate involutional change. Carotid doppler: Right and Left normal findings. Patient's home medication of Atenolol was discontinued due to decreased heart rate in the 50s. ECHO was done and showed left ventricular hypertrophy. Patient stable for discharge home per Dr. Allison. Patient to resume some home medications. Patient to stop: Atenolol PO daily Patient to follow up with cardiology Dr. Guillen within one week. Patient to follow up with primary care physician within one week. If symptoms return or worsen patient to return to Emergency Room. Discharge Exam - Head Exam Head Exam: ATRAUMATIC, NORMAL INSPECTION, NORMOCEPHALIC - Eye Exam Eye Exam: EOMI, Normal appearance, PERRL Pupil Exam: NORMAL ACCOMODATION, PERRL - ENT Exam ENT Exam: Mucous Membranes Moist - Respiratory Exam Respiratory Exam: Clear to PA & Lateral, NORMAL BREATHING PATTERN - Cardiovascular Exam Cardiovascular Exam: REGULAR RHYTHM, RRR, +S1, +S2. absent: JVD - GI/Abdominal Exam GI & Abdominal Exam: Normal Bowel Sounds, Soft. absent: Tenderness - Extremities Exam Extremities exam: normal inspection - Neurological Exam Neurological exam: Alert, Oriented x3 - Psychiatric Exam Psychiatric exam: Normal Affect, Normal Mood - Skin Skin Exam: Normal Color, Warm Discharge Plan - Follow Up Plan Condition: FAIR Disposition: HOME/ ROUTINE
[2017-07-11] MEDS: Rosuvastatin Calcium 2.5 mg Tab PO SCH (21:36)
[2017-07-12 02:45] VITALS: RESP 20
[2017-07-12 08:48] VITALS: BP 130/76; PULSE 58; TEMP 98.7; O2SAT 96
--- NOTE | 2017-07-12 10:41 | CP.PCM.PN ---
<Ludivina Doss - Last Filed: 07/12/17 10:41> Subjective - Date & Time of Evaluation Date of Evaluation: 07/12/17 Time of Evaluation: 10:15 - Subjective Subjective: PGY 2 Progress Note (update) Patient was seen at bedside. Patient was to go home last night but was not aware of being discharged until late in the day. At that time, she was not able to obtain a ride and thus stayed overnight. Patient was discharged home this morning. Dr. Allison saw patient and was made aware. Patient is medically stable for discharge at this time. PGY 2 - [place] Objective - Vital Signs/Intake and Output Vital Signs (last 24 hours): Temp Pulse Resp BP Pulse Ox 98.7 F 58 L 20 130/76 96 07/12/17 08:46 07/12/17 08:46 07/12/17 08:46 07/12/17 08:46 07/12/17 08:46 - Labs Labs: 07/11/17 07:09 07/10/17 07:36 PT 12.0 SECONDS (9.7-12.2) 07/09/17 09:58 INR 1.1 07/09/17 09:58 APTT 53 SECONDS (21-34) H 07/10/17 07:36 <Dionicio Allison Jr. - Last Filed: 07/15/17 10:53> Objective - Vital Signs/Intake and Output Vital Signs (last 24 hours): Temp Pulse Resp BP Pulse Ox 98.7 F 58 L 20 130/76 96 07/12/17 08:46 07/12/17 08:46 07/12/17 08:46 07/12/17 08:46 07/12/17 08:46 - Labs Labs: 07/11/17 07:09 07/10/17 07:36 PT 12.0 SECONDS (9.7-12.2) 07/09/17 09:58 INR 1.1 07/09/17 09:58 APTT 53 SECONDS (21-34) H 07/10/17 07:36 Attending/Attestation - Attestation I have personally seen and examined this patient.: Yes I have fully participated in the care of the patient.: Yes I have reviewed all pertinent clinical information, including history, physical exam and plan: Yes Notes (Text): 07/15/17 10:53 Agree with resident note and plan of care
--- NOTE | 2017-07-13 10:55 | CARD ---
APPROVED REPORT EXAM: Two-dimensional and M-mode echocardiogram with Doppler and color Doppler. Other Information Quality : GoodRhythm : NSR INDICATION Dizziness and Vertigo Syncope 2D DIMENSIONS IVSd1.1 (0.7-1.1cm)LVDd4.0 (3.9-5.9cm) PWd1.2 (0.7-1.1cm)LVDs3.1 (2.5-4.0cm) FS (%) 21.6 %LVEF (%)60.0 (>50%) M-Mode DIMENSIONS RVDd1.95 (2.1-3.2cm)Left Atrium (MM)4.07 (2.5-4.0cm) IVSd1.30 (0.7-1.1cm)Aortic Root2.67 (2.2-3.7cm) LVDd3.87 (4.0-5.6cm)Aortic Cusp Exc.1.89 (1.5-2.0cm) PWd0.94 (0.7-1.1cm)FS (%) 45 % LVDs2.15 (2.0-3.8cm)LVEF (%)76 (>50%) Mitral Valve MV E Zmvtjkmi80.3cm/sMV A Makkvyku271.7cm/sE/A ratio0.7 TDI E/Lateral E'0.0E/Medial E'0.0 Tricuspid Valve TR Peak [id number]/sTR Peak Gr.[id number] <Conclusion> Left ventricle: thickness: normal; size: normal; overall ejection fraction:55%: diastolic filling pressures: elevated Mitral valve: annulus: normal: leaflets: normal: excursion: normal; no significant trans-mitral gradient: no significant incompetence: left atrium: upper limit of normal Aortic valve: leaflets:mild calcific thickening: excursion: normal; no significant trans-aortic gradient: No significant incompetence: aortic root: normal Right sided Structures: Pulmonary valve: normal; no significant incompetence; Tricuspid valve: normal; no significant incompetence: Intra-cardiac hemodynamics: pulmonary systolic pressures: normal; central venous pressures: normal No pericardial effusion
== END 2017-07-12 10:33 | disposition home or self-care (01) | DRG 149 ==
LOC: C.ER 03:45 → C.9E 06:38 → C.6T 09:38
PROVIDERS: ADMIT Internal Medicine; ATTEND Internal Medicine
DX: R42 Dizziness and giddiness (principal); I11.9 Hypertensive heart disease without heart failure; R73.03 Prediabetes; E78.5 Hyperlipidemia, unspecified; Z90.12 Acquired absence of left breast and nipple; Z82.49 Family history of ischemic heart disease and other diseases of the circulatory system; Z82.3 Family history of stroke